=== PATIENT | female | born 1975 | race Caucasian/White ===

== ENCOUNTER 2020-02-05 17:20 | Inpatient (IN) | payer MEDICAID ==
[~2020-02-05] VITALS: Ht 165.1 cm; Wt 44.0 kg
[2020-02-05 23:54] LABS: BASOPHILS % 0.5 % (0.0-2.0); EOSINOPHILS % 0.1 % (0.0-5.0); HEMOGLOBIN. 14.5 g/dL (12.0-16.0); LYMPHOCYTES % 16.4 % (20.0-50.0); MEAN CORPUSCULAR HEMOGLOBIN 30.1 pg (28.0-32.0); MONOCYTES % 5.7 % (2.0-8.0); NEUTROPHILS % 77.3 % (40.0-76.0); PLATELET 249 x1000/uL (130-400); RED BLOOD CELL COUNT 4.83 mill/uL (4.2-5.4); RED CELL DISTRIBUTION WIDTH 12.5 % (11.6-14.6)
[2020-02-06 00:03] LABS: CHLORIDE 105 mEq/L (98-107)
[2020-02-06 00:08] LABS: INR 0.9; PARTIAL THROMBOPLASTIN TIME 29.6 sec (23.4-31.0); PROTHROMBIN TIME 9.8 sec (9.6-11.0)
[2020-02-06] MEDS ORDERED: AZITHROMYCIN 500 MG in DEXT 5% WATER 250 ML IV SCH ×3 (03:15→21:00)
[2020-02-06] MEDS ORDERED: PIPERACILLIN/TAZOBACTAM 3.375GM/50ML PREMIX IV SCH (03:15)
[2020-02-06] MEDS ORDERED: VANCOMYCIN 1 G PREMIX 200 ML IV SCH (03:15)
[2020-02-06] MEDS ORDERED: INSULIN REGULAR (HUMULIN R) 300UNITS/3ML VIAL IV ONE (05:30)
[2020-02-06] MEDS ORDERED: DEXTROSE 50% WATER 50ML SYRINGE IV PRN ×2 (07:30→10:15)
[2020-02-06] MEDS ORDERED: INSULIN LISPRO 100 UNITS/ML SUBCUT SCH (08:20)
[2020-02-06] MEDS ORDERED: BLOOD SUGAR DIAGNOSTIC STRIP TEST SCH (09:00)
[2020-02-06] MEDS ORDERED: MAGNESIUM/ALUMINUM HYDROXIDE/SIMETHICONE 30ML UDC PO PRN (10:15)
[2020-02-06] MEDS ORDERED: BENZONATATE 100MG CAPSULE PO PRN (10:15)
[2020-02-06] MEDS ORDERED: DIPHENHYDRAMINE 50MG/ML VIAL IV PRN (10:15)
[2020-02-06] MEDS ORDERED: CLONIDINE 0.1MG TABLET PO PRN (10:15)
[2020-02-06] MEDS ORDERED: ACETAMINOPHEN 325MG TABLET PO PRN ×2 (10:15)
[2020-02-06] MEDS ORDERED: ONDANSETRON HCL 4MG/2ML INJ IV PRN (10:15)
[2020-02-06] MEDS ORDERED: ALBUTEROL 6.7GM HFA INHALER ORI PRN (10:30)
[2020-02-06] MEDS: DEXAMETHASONE 10 MG/ML VIAL IV SCH (11:15)
[2020-02-06 11:27] LABS: BG BASE EXCESS 0.6 mmol/L (-2.0-2.0); BG DEOXYHEMOGLOBIN 0.6 % (0.0-5.0); BG HCO3 ACT 23.9 mmol/L (22.0-26.0); BG METHEMOGLOBIN 0.2 % (0.0-1.5); BG OXYGEN SATURATION 99.4 % (92.0-98.5); BG OXYHEMOGLOBIN 99.2 % (94.0-97.0); BG PCO2 34.5 mmHg (35.0-45.0); BG PH 7.458 (7.350-7.450); BG PO2 363.5 mmHg (75.0-100.0); BG SAMPLE SITE RIGHT RADIAL; BG TOTAL HEMOGLOBIN 14.8 g/dL (12.0-18.0); BG VENT MODE MASK - BIPAP
[2020-02-06] MEDS: BLOOD SUGAR DIAGNOSTIC STRIP TEST SCH ×2 (15:19→21:00)
[2020-02-06] MEDS: INSULIN LISPRO 100 UNITS/ML SUBCUT SCH ×3 (15:20→21:00)
[2020-02-06] MEDS: CEFTRIAXONE 1 G PREMIX 50 ML IV SCH (15:20)
[2020-02-06] MEDS: SODIUM CHLORIDE 0.9% INJ 3ML FLUSH IVF SCH ×2 (15:22→22:00)
[2020-02-06] MEDS: ENOXAPARIN 60MG/0.6ML SYR SUBCUT SCH (15:34)
[2020-02-06] MEDS ORDERED: ZOLPIDEM TARTRATE 5MG TABLET PO PRN (21:00)
[2020-02-06] MEDS: INSULIN GLARGINE UD 100 UNITS/ML SYR SUBCUT SCH (23:35)
[2020-02-07] MEDS: GUAIFENESIN 200MG/10ML SUGAR FREE UDC PO PRN ×2 (00:05→12:35)
[2020-02-07] MEDS: DOXYCYCLINE HYCLATE 100MG CAPSULE PO SCH (00:06)
[2020-02-07] MEDS: OMEPRAZOLE 20MG CAPSULE EXTENDED RELEASE PO SCH ×2 (00:06→06:00)
[2020-02-07] MEDS: GUAIFENESIN 600MG ER TABLET PO SCH ×2 (00:21→12:36)
[2020-02-07] MEDS: INSULIN GLARGINE UD 100 UNITS/ML SYR SUBCUT SCH ×2 (00:35→10:00)
[2020-02-07] MEDS: BLOOD SUGAR DIAGNOSTIC STRIP TEST SCH ×3 (05:43→22:38)
[2020-02-07] MEDS: SODIUM CHLORIDE 0.9% INJ 3ML FLUSH IVF SCH (05:45)
[2020-02-07] MEDS: ENOXAPARIN 60MG/0.6ML SYR SUBCUT SCH (06:02)
[2020-02-07] MEDS: INSULIN LISPRO 100 UNITS/ML SUBCUT SCH ×3 (06:11→19:30)
[2020-02-07] MEDS: CHOLECALCIFEROL (D3) 1000 UNIT TABLET PO SCH ×2 (11:00→12:35)
[2020-02-07] MEDS: DEXAMETHASONE 10 MG/ML VIAL IV SCH (12:34)
[2020-02-07] MEDS: CEFTRIAXONE 1 G PREMIX 50 ML IV SCH (12:42)
[2020-02-08] MEDS: OMEPRAZOLE 20MG CAPSULE EXTENDED RELEASE PO SCH ×3 (00:35→21:00)
[2020-02-08] MEDS: GUAIFENESIN 600MG ER TABLET PO SCH ×3 (00:35→21:00)
[2020-02-08] MEDS: INSULIN LISPRO 100 UNITS/ML SUBCUT SCH ×5 (00:35→21:00)
[2020-02-08] MEDS: DOXYCYCLINE HYCLATE 100MG CAPSULE PO SCH ×4 (00:35→21:00)
[2020-02-08] MEDS: SODIUM CHLORIDE 0.9% INJ 3ML FLUSH IVF SCH ×4 (00:35→22:00)
[2020-02-08] MEDS: ENOXAPARIN 60MG/0.6ML SYR SUBCUT SCH ×3 (06:00→18:00)
[2020-02-08] MEDS: BLOOD SUGAR DIAGNOSTIC STRIP TEST SCH ×4 (08:00→21:00)
[2020-02-08] MEDS: INSULIN GLARGINE UD 100 UNITS/ML SYR SUBCUT SCH ×2 (17:05→22:00)
[2020-02-08] MEDS: CEFTRIAXONE 1 G PREMIX 50 ML IV SCH (19:14)
[2020-02-08] MEDS: DEXAMETHASONE 10 MG/ML VIAL IV SCH (19:14)
[2020-02-08] MEDS: CHOLECALCIFEROL (D3) 1000 UNIT TABLET PO SCH (19:14)
[2020-02-09] VITALS (7 sets, daily range): BP systolic 115–149; BP diastolic 67–84
[2020-02-09] MEDS: ENOXAPARIN 60MG/0.6ML SYR SUBCUT SCH ×2 (05:23→18:44)
[2020-02-09] MEDS: BLOOD SUGAR DIAGNOSTIC STRIP TEST SCH ×4 (05:56→21:39)
[2020-02-09] MEDS: SODIUM CHLORIDE 0.9% INJ 3ML FLUSH IVF SCH ×3 (06:15→21:38)
[2020-02-09] MEDS: OMEPRAZOLE 20MG CAPSULE EXTENDED RELEASE PO SCH (06:15)
[2020-02-09 07:33] LABS: BASOPHILS % 0.1 % (0.0-2.0); HEMATOCRIT. 41.6 % (36.0-48.0); LYMPHOCYTES % 7.8 % (20.0-50.0); MEAN CORPUSCULAR HEMOGLOBIN 29.6 pg (28.0-32.0); MEAN PLATELET VOLUME 9.2 fl (7.4-10.4); MONOCYTES % 4.8 % (2.0-8.0); NEUTROPHILS % 87.3 % (40.0-76.0); PLATELET 428 x1000/uL (130-400); RED BLOOD CELL COUNT 4.73 mill/uL (4.2-5.4); RED CELL DISTRIBUTION WIDTH 12.2 % (11.6-14.6)
[2020-02-09 07:39] LABS: CHLORIDE 108 mEq/L (98-107)
[2020-02-09] MEDS ORDERED: CEFTRIAXONE 1,000 MG in DEXTROSE 5% WATER 50 ML IV SCH (09:00)
[2020-02-09] MEDS: INSULIN LISPRO 100 UNITS/ML SUBCUT SCH ×4 (09:49→21:38)
[2020-02-09] MEDS: INSULIN GLARGINE UD 100 UNITS/ML SYR SUBCUT SCH ×2 (09:51→21:41)
[2020-02-09] MEDS: DOXYCYCLINE HYCLATE 100MG CAPSULE PO SCH ×2 (09:52→21:38)
[2020-02-09] MEDS: GUAIFENESIN 600MG ER TABLET PO SCH ×2 (09:52→21:40)
[2020-02-09] MEDS: CHOLECALCIFEROL (D3) 1000 UNIT TABLET PO SCH (09:53)
[2020-02-09] MEDS: DEXAMETHASONE 10 MG/ML VIAL IV SCH (09:55)
[2020-02-09] MEDS: FAMOTIDINE 20MG TABLET PO SCH (21:38)
[2020-02-10] VITALS: BP 106/75
[2020-02-10 04:28] VITALS: BP 116/72
[2020-02-10] MEDS: FAMOTIDINE 20MG TABLET PO SCH ×2 (07:26→20:55)
[2020-02-10] MEDS: BLOOD SUGAR DIAGNOSTIC STRIP TEST SCH ×4 (07:39→21:42)
[2020-02-10] MEDS: ENOXAPARIN 60MG/0.6ML SYR SUBCUT SCH ×2 (07:43→17:51)
[2020-02-10 08:00] VITALS: BP 112/71
[2020-02-10] MEDS: INSULIN LISPRO 100 UNITS/ML SUBCUT SCH ×4 (08:04→20:57)
[2020-02-10] MEDS: DOXYCYCLINE HYCLATE 100MG CAPSULE PO SCH ×2 (09:35→20:55)
[2020-02-10] MEDS: INSULIN GLARGINE UD 100 UNITS/ML SYR SUBCUT SCH ×2 (09:35→21:31)
[2020-02-10] MEDS: DEXAMETHASONE 10 MG/ML VIAL IV SCH (09:35)
[2020-02-10] MEDS: CHOLECALCIFEROL (D3) 1000 UNIT TABLET PO SCH (09:36)
[2020-02-10] MEDS: GUAIFENESIN 600MG ER TABLET PO SCH ×2 (09:36→20:55)
[2020-02-10 12:00] VITALS: BP 108/68
[2020-02-10] MEDS: SODIUM CHLORIDE 0.9% INJ 3ML FLUSH IVF SCH ×2 (14:03→22:00)
[2020-02-10 16:00] VITALS: BP 117/72
[2020-02-10 20:00] VITALS: BP 116/70
[2020-02-11] VITALS: BP 113/69
[2020-02-11 04:32] VITALS: BP 106/71
[2020-02-11] MEDS: SODIUM CHLORIDE 0.9% INJ 3ML FLUSH IVF SCH ×3 (05:11→21:55)
[2020-02-11] MEDS: ENOXAPARIN 60MG/0.6ML SYR SUBCUT SCH ×2 (05:14→17:55)
[2020-02-11] MEDS: FAMOTIDINE 20MG TABLET PO SCH ×2 (06:42→21:58)
[2020-02-11] MEDS: BLOOD SUGAR DIAGNOSTIC STRIP TEST SCH ×4 (07:40→21:55)
[2020-02-11 08:00] VITALS: BP 105/66
[2020-02-11] MEDS: INSULIN LISPRO 100 UNITS/ML SUBCUT SCH ×4 (08:10→21:51)
[2020-02-11] MEDS: CHOLECALCIFEROL (D3) 1000 UNIT TABLET PO SCH (09:17)
[2020-02-11] MEDS: GUAIFENESIN 600MG ER TABLET PO SCH ×2 (09:17→21:49)
[2020-02-11] MEDS: DOXYCYCLINE HYCLATE 100MG CAPSULE PO SCH ×2 (09:17→21:49)
[2020-02-11] MEDS: DEXAMETHASONE 10 MG/ML VIAL IV SCH (09:18)
[2020-02-11] MEDS: INSULIN GLARGINE UD 100 UNITS/ML SYR SUBCUT SCH ×2 (10:19→21:50)
[2020-02-11 12:00] VITALS: BP 110/68
[2020-02-11 16:00] VITALS: BP 106/69
[2020-02-11] MEDS ORDERED: DOPAMINE 400MG/250ML PREMIX 250 ML IV PRN (16:30)
[2020-02-11 17:33] LABS: BASOPHILS % 0.2 % (0.0-2.0); HEMOGLOBIN. 14.2 g/dL (12.0-16.0); LYMPHOCYTES % 8.8 % (20.0-50.0); MEAN CORPUSCULAR VOLUME 88.6 fL (81.0-99.0); MEAN PLATELET VOLUME 8.9 fl (7.4-10.4); PLATELET 509 x1000/uL (130-400); RED BLOOD CELL COUNT 4.74 mill/uL (4.2-5.4); RED CELL DISTRIBUTION WIDTH 11.8 % (11.6-14.6)
[2020-02-11 17:52] LABS: CHLORIDE 104 mEq/L (98-107)
[2020-02-11 18:03] LABS: T4 FREE 1.12 ng/dL (0.76-1.46)
[2020-02-11 20:00] VITALS: BP 104/65
[2020-02-12] VITALS (124 sets, daily range): BP systolic 88–187; BP diastolic 27–102
[2020-02-12] MEDS: SODIUM CHLORIDE 0.9% INJ 3ML FLUSH IVF SCH ×3 (05:30→21:48)
[2020-02-12] MEDS: ENOXAPARIN 60MG/0.6ML SYR SUBCUT SCH ×2 (05:31→18:24)
[2020-02-12] MEDS: BLOOD SUGAR DIAGNOSTIC STRIP TEST SCH ×4 (05:31→21:48)
[2020-02-12] MEDS: FAMOTIDINE 20MG TABLET PO SCH ×2 (05:37→21:49)
[2020-02-12] MEDS: INSULIN LISPRO 100 UNITS/ML SUBCUT SCH ×4 (05:37→21:49)
[2020-02-12] MEDS: DEXAMETHASONE 10 MG/ML VIAL IV SCH (08:49)
[2020-02-12] MEDS: GUAIFENESIN 600MG ER TABLET PO SCH ×2 (08:50→21:49)
[2020-02-12] MEDS: CHOLECALCIFEROL (D3) 1000 UNIT TABLET PO SCH (08:50)
[2020-02-12] MEDS: INSULIN GLARGINE UD 100 UNITS/ML SYR SUBCUT SCH ×2 (10:37→21:48)
[2020-02-13] VITALS (85 sets, daily range): BP systolic 90–175; BP diastolic 49–97
[2020-02-13] MEDS: SODIUM CHLORIDE 0.9% INJ 3ML FLUSH IVF SCH ×3 (06:00→21:58)
[2020-02-13] MEDS: BLOOD SUGAR DIAGNOSTIC STRIP TEST SCH ×4 (06:08→21:16)
[2020-02-13] MEDS: ENOXAPARIN 60MG/0.6ML SYR SUBCUT SCH ×2 (06:08→18:25)
[2020-02-13] MEDS: INSULIN LISPRO 100 UNITS/ML SUBCUT SCH ×4 (06:08→21:39)
[2020-02-13] MEDS: FAMOTIDINE 20MG TABLET PO SCH ×2 (06:08→21:39)
[2020-02-13] MEDS: GUAIFENESIN 600MG ER TABLET PO SCH ×2 (09:00→21:39)
[2020-02-13] MEDS: DEXAMETHASONE 10 MG/ML VIAL IV SCH (09:00)
[2020-02-13] MEDS: CHOLECALCIFEROL (D3) 1000 UNIT TABLET PO SCH (09:00)
[2020-02-13 09:19] LABS: BG CARBOXYHEMOGLOBIN 0.7 % (0.5-1.5); BG DEOXYHEMOGLOBIN 3.9 % (0.0-5.0); BG FRACTION INSPIRED OXYGEN 28; BG HCO3 ACT 22.7 mmol/L (22.0-26.0); BG OXYGEN SATURATION 96.1 % (92.0-98.5); BG OXYHEMOGLOBIN 95.4 % (94.0-97.0); BG PCO2 35.3 mmHg (35.0-45.0); BG PH 7.427 (7.350-7.450); BG PO2 79.5 mmHg (75.0-100.0); BG SAMPLE SITE RIGHT RADIAL; BG TOTAL HEMOGLOBIN 15.6 g/dL (12.0-18.0); BG VENT MODE NASAL CANNULA
[2020-02-13] MEDS: INSULIN GLARGINE UD 100 UNITS/ML SYR SUBCUT SCH ×2 (13:04→21:40)
[2020-02-13] MEDS: THEOPHYLLINE ANHYDROUS 80 MG/15 ML 120ML PO SCH (18:24)
[2020-02-14] VITALS: BP 101/60
[2020-02-14 04:00] VITALS: BP 103/70
[2020-02-14] MEDS: ENOXAPARIN 60MG/0.6ML SYR SUBCUT SCH ×2 (05:46→18:20)
[2020-02-14] MEDS: SODIUM CHLORIDE 0.9% INJ 3ML FLUSH IVF SCH ×3 (05:46→22:43)
[2020-02-14] MEDS: BLOOD SUGAR DIAGNOSTIC STRIP TEST SCH ×4 (06:41→21:00)
[2020-02-14] MEDS: INSULIN LISPRO 100 UNITS/ML SUBCUT SCH ×4 (06:41→22:42)
[2020-02-14 08:00] VITALS: BP 105/65
[2020-02-14] MEDS: THEOPHYLLINE ANHYDROUS 80 MG/15 ML 120ML PO SCH ×2 (09:00→17:00)
[2020-02-14] MEDS: GUAIFENESIN 600MG ER TABLET PO SCH ×2 (09:00→22:41)
[2020-02-14] MEDS: DEXAMETHASONE 10 MG/ML VIAL IV SCH (09:00)
[2020-02-14] MEDS: FAMOTIDINE 20MG TABLET PO SCH ×2 (10:37→22:41)
[2020-02-14] MEDS: INSULIN GLARGINE UD 100 UNITS/ML SYR SUBCUT SCH ×2 (10:38→22:43)
[2020-02-14] MEDS: CHOLECALCIFEROL (D3) 1000 UNIT TABLET PO SCH (10:38)
[2020-02-14 12:00] VITALS: BP 103/63
[2020-02-14 16:00] VITALS: BP 110/68
[2020-02-14 20:00] VITALS: BP 92/54
[2020-02-15] VITALS: BP 91/46
[2020-02-15 04:00] VITALS: BP 89/58
[2020-02-15] MEDS: INSULIN LISPRO 100 UNITS/ML SUBCUT SCH ×3 (07:17→17:40)
[2020-02-15] MEDS: FAMOTIDINE 20MG TABLET PO SCH (07:17)
[2020-02-15] MEDS: ENOXAPARIN 60MG/0.6ML SYR SUBCUT SCH ×2 (07:17→18:00)
[2020-02-15] MEDS: BLOOD SUGAR DIAGNOSTIC STRIP TEST SCH ×3 (07:17→17:10)
[2020-02-15] MEDS: SODIUM CHLORIDE 0.9% INJ 3ML FLUSH IVF SCH ×2 (07:18→14:08)
[2020-02-15 08:00] VITALS: BP 110/60
[2020-02-15] MEDS: DEXAMETHASONE 10 MG/ML VIAL IV SCH (09:55)
[2020-02-15] MEDS: CHOLECALCIFEROL (D3) 1000 UNIT TABLET PO SCH (09:55)
[2020-02-15] MEDS: INSULIN GLARGINE UD 100 UNITS/ML SYR SUBCUT SCH (09:58)
[2020-02-15] MEDS: THEOPHYLLINE ANHYDROUS 80 MG/15 ML 120ML PO SCH ×2 (09:59→17:00)
[2020-02-15 12:00] VITALS: BP 106/60
[2020-02-15 18:23] VITALS: BP 106/60
== END 2020-02-15 20:09 | disposition home or self-care (01) | DRG 720 ==
LOC: ER 17:35 → MICUSO 02-06 02:57 → 7WST 02-08 22:52 → MICUSO 02-12 02:00 → 8WST 02-13 23:50
PROVIDERS: ADMIT Internal Medicine; ATTEND Internal Medicine
PROC: 5A09457 Assistance with Respiratory Ventilation, 24-96 Consecutive Hours, Continuous Positive Airway Pressure (ICD-10-PCS; principal; 2020-02-06)
DX: A41.89 Other specified sepsis (principal); U07.1 COVID-19; J96.01 Acute respiratory failure with hypoxia; E43 Unspecified severe protein-calorie malnutrition; E11.65 Type 2 diabetes mellitus with hyperglycemia; I10 Essential (primary) hypertension; J12.89 Other viral pneumonia; R65.20 Severe sepsis without septic shock; T38.0X5A Adverse effect of glucocorticoids and synthetic analogues, initial encounter; D72.810 Lymphocytopenia; Z90.710 Acquired absence of both cervix and uterus; Z68.1 Body mass index [BMI] 19.9 or less, adult; Y92.89 Other specified places as the place of occurrence of the external cause; I49.8 Other specified cardiac arrhythmias
CPT/HCPCS: 36415; 36600; 71045; 80048; 80053; 82375; 82728; 82805; 82962; 83036; 83605; 83615; 83735; 83880; 84145; 84439; 84443; 84484; 85025; 85379; 86140; 93005; 94660; 99291; C9803; J0456; J0696; J1100; J1265; J1650; J1815; J2543; J3370; J7060; U0003